=== PATIENT | female | born 2000 | race Caucasian/White ===

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

== ENCOUNTER 2023-02-28 09:06 | Emergency (ER) | payer OTHER, BC ==
[~2023-02-28] VITALS: Ht 165.1 cm; Wt 104.3 kg
[2023-02-28 11:24] VITALS: BP 140/65; TEMP 98.4; O2SAT 98
== END 2023-02-28 11:50 | disposition home or self-care (01) ==
LOC: M ED 09:06
DX: S80.01XA Contusion of right knee, initial encounter (principal); W01.0XXA Fall on same level from slipping, tripping and stumbling without subsequent striking against object, initial encounter; Y99.0 Civilian activity done for income or pay